=== PATIENT | female | born 2000 | race African-American/Black ===

== ENCOUNTER 2024-02-26 09:46 | Day surgery (SDC) | payer OTHER ==
[~2024-02-26] VITALS: Ht 167.6 cm; Wt 69.9 kg
[~2024-02-26 09:46] MED LIST: IBUP-354 PO
[2024-02-26] MEDS ORDERED: LIDOCAINE 2% 100MG/5ML SDV (FOR ANES.) As Ordered ONE (09:48)
[2024-02-26] MEDS ORDERED: GLYCOPYRROLATE INJ 0.2 MG/ML 2 ML VIAL As Ordered ONE (09:48)
[2024-02-26] MEDS ORDERED: propofoL 200 MG/20 ML VIAL As Ordered ONE (09:48)
[2024-02-26] MEDS ORDERED: KETOROLAC 60MG 2ML VIAL As Ordered ONE (09:49)
[2024-02-26] MEDS ORDERED: MIDAZOLAM INJ 2MG/2ML VIAL As Ordered ONE (09:49)
[2024-02-26] MEDS ORDERED: ONDANSETRON 4MG 2ML VIAL As Ordered ONE (09:49)
[2024-02-26] MEDS ORDERED: fentaNYL 100 MCG/2 ML INJECTION As Ordered ONE (09:50)
[2024-02-26] MEDS ORDERED: SUGAMMADEX SODIUM 500 MG/5 ML VIAL (BRIDION) As Ordered ONE (10:10)
[2024-02-26] MEDS ORDERED: ROCURONIUM BROMIDE 50MG/5ML VIAL As Ordered ONE (10:10)
[2024-02-26] MEDS ORDERED: ACETAMINOPHEN 1000MG/100ML IV BAG As Ordered ONE (10:20)
[2024-02-26] MEDS: NS (Normal Saline) 0.9% 1,000 ML IV SCH (10:35)
[2024-02-26] MEDS: dexAMETHasone 10MG/1ML VIAL PRES.FREE PN ONE (11:15)
[2024-02-26] MEDS: ROPIvacaine 0.5% 30ML VIAL PN ONE (11:15)
[2024-02-26] MEDS: MIDAZOLAM INJ 2MG/2ML VIAL IV PRN (11:15)
[2024-02-26] MEDS: EPINEPHrine INJ 1 MG/ML 1ML AMP PN ONE (11:15)
[2024-02-26] MEDS: LIDOCAINE 1% SDV 5ML VIAL PN ONE (11:15)
[2024-02-26] MEDS: fentaNYL 100 MCG/2 ML INJECTION IV PRN (11:15)
[2024-02-26] MEDS: ceFAZolin SOD 2 GM in IV 1 EA IV ONE (11:59)
[2024-02-26] MEDS: TRANEXAMIC ACID 100 MG/ML 10ML VIAL IV ONE (12:10)
[2024-02-26] MEDS ORDERED: KETAMINE HCL 200MG/20ML VIAL As Ordered ONE (12:25)
[2024-02-26] MEDS: TRANEXAMIC ACID 100 MG/ML 10ML VIAL As Ordered ONE (12:37)
[2024-02-26] MEDS: EPINEPHrine 1MG/ML INJ 30ML MD-VIAL As Ordered ONE (12:38)
[2024-02-26] MEDS ORDERED: METOCLOPRAMIDE INJ 10MG/2ML VIAL As Ordered ONE (12:43)
[2024-02-26] MEDS ORDERED: HYDROmorphone HCL 2MG/ML 1ML VIAL As Ordered ONE (14:18)
[2024-02-26] MEDS ORDERED: NS (Normal Saline) 0.9% 1,000 ML IV SCH (15:40)
[2024-02-26] MEDS ORDERED: fentaNYL 100 MCG/2 ML INJECTION IV PRN (15:40)
[2024-02-26] MEDS: oxyCODONE 5MG TAB PO PRN (15:56)
[2024-02-26] MEDS: HYDROMORPHONE HCL 0.5 MG/ 0.5 ML SYRINGE IV PRN (15:57)
[2024-02-26] MEDS: ONDANSETRON 4MG 2ML VIAL IV PRN (17:03)
[2024-02-26] MEDS: diphenhydrAMINE 50MG/ML VIAL IV STA (18:00)
[2024-02-26 19:00] VITALS: BP 118/69; TEMP 97.2; O2SAT 100
== END 2024-02-26 19:10 | disposition home or self-care (01) ==
LOC: M SDC 09:46
PROVIDERS: ATTEND Orthopaedic Surgery
DX: S83.512A Sprain of anterior cruciate ligament of left knee, initial encounter (principal); X50.1XXA Overexertion from prolonged static or awkward postures, initial encounter; W19.XXXA Unspecified fall, initial encounter; Y93.02 Activity, running; Y92.84 Military training ground as the place of occurrence of the external cause
CPT/HCPCS: 29888; 73560; 81025; C1713; C1762; J0131; J0171; J0690; J1100; J1171; J1200; J1596; J1885; J2250; J2405; J2765; J3010